=== PATIENT | male | born 1965 | race Caucasian/White ===

== ENCOUNTER → 2019-12-04 08:54 | Outpatient (CLI) | payer MEDICAID | END | disposition home or self-care (01) | LOC: D.HCCECHO 08:54 | PROVIDERS: ATTEND Internal Medicine Cardiovascular Disease | DX: R06.00 Dyspnea, unspecified (principal); I20.9 Angina pectoris, unspecified ==

== ENCOUNTER → 2020-01-18 10:51 | Outpatient (CLI) | payer MEDICAID ==
[~2020-01-18 10:51] MED LIST: ALBUTEROL SULF8.5 GM INH; LISINOPRIL-HCT1 EAC8 PO; ZOCOR20 MG PO
[2020-01-22 06:47] VITALS: BMI 31.4
== END | disposition home or self-care (01) ==
LOC: D.LAB 10:51
PROVIDERS: ATTEND Internal Medicine Pulmonary Disease
DX: Z13.9 Encounter for screening, unspecified (principal)

== ENCOUNTER → 2020-01-21 13:43 | Outpatient (CLI) | payer MEDICAID ==
[2020-01-22 06:47] VITALS: BMI 31.4
== END | disposition home or self-care (01) ==
LOC: D.RT 13:43
PROVIDERS: ATTEND Internal Medicine Pulmonary Disease
DX: R06.09 Other forms of dyspnea (principal)

== ENCOUNTER 2020-01-22 05:49 | Day surgery (SDC) | payer MEDICAID ==
[~2020-01-22] VITALS: Ht 177.8 cm; Wt 99.5 kg
--- NOTE | ~2020-01-22 | HEMODYNAMI ---
PATIENT:YUDITH LUNA MEDICAL RECORD: [id number] : 63 LOCATION:[facility] ADMISSION DATE: 01/22/20 Generatedon:01/22/20208:29 Patient name: YUDITH LUNA Patient #: [id number] SSN: : 1965 Date of study: 01/22/2020 Page: Of Hemodynamic Procedure Report Patient Data Patient Demographics Procedure consent was obtained First Name: YUDITH Gender: Male Last Name: JEREMY : 1965 Patient #: [id number] Age: 54 year(s) Race: Additional ID: [id number] Contact details [address]: [address] [place] [address] State: [place] City: [place] Zip code: [address] Past Medical History Allergies Allergen Reaction Date Comments Reported Other allergy 01/22/2020 N Admission Admission Data Admission Date: 01/22/2020 Admission Time: 5:49 Arrival Date: 01/22/2020 Arrival Time: 0:00 Admit Source: Other Height (in.): 70.08 BSA: 2.18 (m2) Height (cm.): 178 BMI: 31.56 (kg/m2) Weight (lbs.): 220.46 Weight (kg.): 100 Lab Results Lab Result Date: 01/22/2020 Lab Result Time: 7:00 Biochemistry Name Units Result Min Max BUN mg/dl 22 --(----)-* 7 18 Creatinine mg/dl 1.3 --(---*)-- 0.6 1.3 eGFR ml/min 61.12089 *-(----)-- 90 120 NONAFRICAN CBC Name Units Result Min Max Hematocrit % 44.8 --(*---)-- 42 54 Hemoglobin g/dl 15.4 --(-*--)-- 13.5 17.5 Procedure Procedure Types Cath Procedure Diagnostic Procedure LHC LHC w/Coronaries Sedation Charges Moderate Sedation up to 30 minutes Procedure Description Procedure Date Procedure Date: 01/22/2020 Procedure Start Time: 8:17 Procedure End Time: 8:27 Procedure Staff Name Function Padminidanii Elam RT Scrub Russ Blue RT Monitor Naz Mcclain RN Nurse Augustin Joaquin MD Performing Physician Indication Angina Procedure Data Cath Procedure Fluoroscopy Diagnostic fluoroscopy Total fluoroscopy Time: 2.4 time: 2.4 min min Diagnostic fluoroscopy Total fluoroscopy dose: 640 dose: 640 mGy mGy Contrast Material Contrast Material Type Amount (ml) Isovue 300 54 Entry Location Entry Primary Successful Side Size Upsize Upsize Entry Closure Braden ccessful Closure Location (Fr) 1 (Fr) 2 (Fr) Remarks Device Remarks Radial Right 6 Fr Mechanical artery Short Compression Estimated blood loss: 5 ml Diagnostic catheters Device Type Used For End Catheter Placement DIAGNOSTIC [place] 110cm 5 Procedure Fr catheter ([id number]) DIAGNOSTIC AR MOD 5Fr Procedure Catheter ([id number]) Procedure Complications No complications Procedure Medications Medication Administration Route Dosage Oxygen etCO2 Nasal cannula 2 l/min Lidocaine 2% added to field 20 Heparin Flush Bag added to field 2 bags (1000units/500ml NS) 0.9% NaCl I.V. 100 ml/hr Radial Cocktail I.A. 1 syringe (Verapamil 2mg/Nitro 400mcg/Heparin 1500units) Versed I.V. 2 mg Fentanyl I.V. 50 mcg Versed I.V. 1 mg Versed I.V. 1 mg Fentanyl I.V. 50 mcg Hemodynamics Rest BSA: 2.18 (m2) HGB: 15.4 (g/dl) O2 Consumption: Estimated: 259.68 (ml/min) O2 Co nsumption indexed: Estimated:119.12 (ml/min/m) Heart Rate: 72 (bpm) Pressure Samples Time Site Value (mmHg) Purpose Heart Use Rate(bpm) 8:20 LV 102/0,11 Snapshot 92 8:20 AO 86/58(69) Pullback 93 8:20 LV 102/-3,7 Pullback 93 Gradients Valve Time Site 1 Site 2 Mean SEP/DFP Peak To Heart Use (mmHg) (sec/min) Peak Rate (mmHg) (bpm) Aortic 8:20 LV AO 2 4 16 93 102/-3,7 86/58(69) Calculations Valve P-P Mean Valve Index Valve Source Name Gradient Area Flow (cm2) Aortic 16 2 16 2 Snapshots Pre Cath Intra NCS Post Cath Vital Signs Time Heart Resp SPO2 etCO2 NIBP Rhythm Pain Sedation Rate (ipm) (%) (mmHg) (mmHg) Status Level (bpm) 8:00:48 72 18 98 21 103/71(77) NSR 0 (11) 10(A) , No pain 8:05:00 88 25 95 21 98/70(84) NSR 0 (11) 10(A) , No pain 8:09:10 77 12 95 25.5 103/69(85) NSR 0 (11) 10(A) , No pain 8:13:22 75 16 96 25.5 105/71(85) NSR 0 (11) 9(A) , No pain 8:17:31 77 11 95 27.8 106/79(84) NSR 0 (11) 9(A) , No pain 8:21:48 83 14 95 13.5 95/57(88) NSR 0 (11) 10(A) , No pain 8:25:59 78 13 95 21.8 88/57(73) NSR 0 (11) 10(A) , No pain Medications Time Medication Route Dose Verified Delivered Reason Notes Effectiveness by by 8:02:31 Oxygen etCO2 2 l/min Augustin Buffie used for Nasal Jemal Mcclain RN procedure cannula 8:02:38 Lidocaine 2% added 20ml Augustin Augustin for local to vial Jemal Joaquin MD anesthetic field 8:02:44 Heparin Flush added 2 bags Augustin Augustin used for Bag to Jemal Joaquin MD procedure (1000units/500ml field NS) 8:02:53 0.9% NaCl I.V. 100 Augustin Buffie Per ml/hr Jemal Mcclain RN physician 8:05:45 Versed I.V. 2 mg Augustin Buffie for sedation Jemal Mcclain RN 8:05:50 Fentanyl I.V. 50 mcg Augustin Buffie for sedation Jemal Mcclain RN 8:11:28 Fentanyl I.V. 50 mcg Augustin Buffie for sedation Jemal Mcclain RN 8:11:31 Versed I.V. 1 mg Augustin Buffie for sedation Jemal Mcclain RN 8:15:30 Versed I.V. 1 mg Augustin Buffie for sedation Jemal Mcclain RN 8:18:00 Radial Cocktail I.A. 1 Augustin Augustin for (Verapamil syringe Jemal Joaquin MD vasodilation 2mg/Nitro 400mcg/Heparin 1500units) Procedure Log Time Note 7:33:35 Informed consent obtained and on chart 7:34:14 Indication : Angina 7:34:36 Arrival Date: 01/22/2020 12:00:00 AM 7:36:11 Patient Height : 70.08 inches 7:36:18 Patient Weight : 220.46 lbs 7:37:20 H&P Date Dictated: 01/22/2020 H&P Addendum completed by physician on day of procedure. (MUST COMPLETE FOR ALL OUTPATIENTS), New H&P dictated by physician.. 7:37:42 Patient allergic to Other allergyPCN 7:38:12 Stress Test: yes; abnormal INFERIOR 7:38:26 Procedure Status Elective Heart Cath (OP). 7:38:31 Time tracking: Regular hours (M-F 7:00 - 5:00) 7:42:42 Plan of Care:Hemodynamics will remain stable., Cardiac rhythm will remain stable., Comfort level will be maintained., Respiratory function will remain adequate., Patient/ family verbilizes understanding of procedure., Procedure tolerated without complication., Recovers from procedure without complications.. 7:46:22 Padmini CHANG(R) (CV) sent for patient. Start room use. 7:52:52 Patient received from Pre/Post Procedure Room to CCL 1 Alert and oriented. Tansferred to table in Supine position. 7:52:54 Warm blankets applied, and jeremías hugger turned on for patient comfort. 7:52:54 Correct patient and procedure confirmed by team. 7:52:55 ECG and BP/O2 sat monitors applied to patient. 7:52:56 Pre-procedure instructions explained to patient. 7:52:56 Pre-op teaching completed and patient verbalized understanding. 7:52:58 Family in waiting room. 7:52:59 Patient NPO since Midnight. 7:55:10 Admit Source: Other 7:55:12 ACC Patient presents with Stable Angina CCS Anginal Class 2--Slight limitation of ordinary activity. 7:55:15 ACCPatient has been prescribed/administered the following anti-anginal medication within the last 2 weeks: PORFIRIO-Inhibitor 7:55:29 Is the patient allergic to Iodine/contrast media? No. 7:55:31 Is patient on blood thinner?No 7:55:32 Patient diabetic? No. 7:55:34 Previous problem with sedation/anesthesia? No ? 7:55:36 Snore? Yes 7:55:36 Sleep apnea? No 7:55:37 Deviated septum? No 7:55:40 Opens mouth fully? Yes 7:55:41 Sticks out tongue? No 7:55:43 Airway obstruction? No ? 7:55:45 Dentures? No ? 7:55:51 Pre procedure: right dorsailis pedis pulse 2+ Normal; easily identifiable; not easily obliterated 7:55:54 Modified Sudheer's test Ulnar < 7 seconds 7:56:01 Patient pain scale 0/10 ?. 7:56:15 IV patent on arrival in left wrist with 0.9% NaCl at [facility]. 7:59:00 Lab Result : BUN 22 mg/dl 7:59:00 Lab Result : Creatinine 1.3 mg/dl 7:59:00 Lab Result : eGFR NONAFRICAN 61.97035 ml/min 7:59:00 Lab Result : Hemoglobin 15.4 g/dl 7:59:00 Lab Result : Hematocrit 44.8 % 7:59:03 Lab results completed and on chart. 7:59:04 Lab results completed and on chart. 7:59:12 Right Radial & Right Groin area was prepped with chlora-prep and draped in sterile fashion 7:59:13 Alarms reviewed by R. N. 7:59:14 Sharps counted by scrub and verified by R.N. 7:59:16 Use device set Radial Dx or PCI 7:59:16 ACIST Syringe (93431) opened to sterile field. 7:59:17 Medline Cath Pack ([id number]) opened to sterile field. 7:59:17 Bag Decanter () opened to sterile field. 7:59:18 ACIST Hand Control (34032) opened to sterile field. 7:59:18 ACIST Manifold (02004) opened to sterile field. 7:59:18 Tegaderm 4 x 4 (1626W) opened to sterile field. 7:59:19 MBrace Wrist Support ([id number]) opened to sterile field. 7:59:20 SHEATH 6FR RAIN (0411430) opened to sterile field. 7:59:21 EMERALD Guide Wire (420-903) opened to sterile field. 7:59:34 NEEDLE Cook 21G 4cm Radial ([id number]) opened to sterile field. 7:59:39 Vital chart was started 7:59:40 Baseline sample Acquired. 7:59:47 Rhythm: unchanged. 7:59:48 Full Disclosure recording started 7:59:59 Physician arrived 7:59:59 --------ALL STOP TIME OUT------ 7:59:59 Final Timeout: patient, procedure, and site verified with staff and physician. All members of the team are in agreement. 8:00:01 Right Radial & Right Groin site verified by team. 8:00:04 Fire Safety Assessment: A--An alcohol-based skin anteseptic being used preoperatively., C--Open oxygen or nitrous oxide is being used., D--An ESU, laser, or fiber-optic light is being used. 8:00:11 Physical assessment completed. ASA score P 2 - A patient with mild systemic disease as per Augustin Joaquin MD. 8:00:16 2) 60-89 Mildly reduced kidney function, and other findings (as for stage 1) point to kidney disease. 8:00:21 Maximum allowable contrast dose (3.7 X eGFR X 0.75)169 ml. 8:00:25 Sedation plan: IV Moderate Sedation Medication:Versed, Fentanyl 8:02:31 Oxygen 2 l/min etCO2 Nasal cannula was administered by Naz Mcclain RN; used for procedure; Verbal order read back and verified. 8:02:38 Lidocaine 2% 20ml vial added to field was administered by Augustin Joaquin MD; for local anesthetic; Verbal order read back and verified. 8:02:44 Heparin Flush Bag (1000units/500ml NS) 2 bags added to field was administered by Augustin Joaquin MD; used for procedure; Verbal order read back and verified. 8:02:53 0.9% NaCl 100 ml/hr I.V. was administered by Naz Mcclain RN; Per physician; Verbal order read back and verified. 8:05:45 Versed 2 mg I.V. was administered by Naz Mcclain RN; for sedation; Verbal order read back and verified. 8:05:50 Fentanyl 50 mcg I.V. was administered by Naz Mcclain RN; for sedation; Verbal order read back and verified. 8:10:53 Zero performed for pressure channel P1 8::28 Fentanyl 50 mcg I.V. was administered by Naz Mcclain RN; for sedation; Verbal order read back and verified. 8::31 Versed 1 mg I.V. was administered by Naz Mcclain RN; for sedation; Verbal order read back and verified. 8:15:30 Versed 1 mg I.V. was administered by Naz Mcclain RN; for sedation; Verbal order read back and verified. 8:17:31 Procedure started. 8:17:36 Local anesthetic to right radial artery with Lidocaine 2% by Augustin Joaquin MD.INITIAL ACCESS ONLY 8:17:42 A 6 Fr Short sheath was inserted into the Right Radial artery 8:18:00 Radial Cocktail (Verapamil 2mg/Nitro 400mcg/Heparin 1500units) 1 syringe I.A. was administered by Augustin Joaquin MD; for vasodilation; Verbal order read back and verified. 8:18:34 A DIAGNOSTIC [place] 110cm 5 Fr catheter ([id number]) was advanced over the wire and used for Procedure. 8:20:10 LV gram done using SANCHEZ 8:20:13 Injector settings: Ml/sec: 5, Volume: 15, 8:20:14 LV hemodynamics recorded. 8:20:21 EF : 60 % 8:21:08 LCA angiography performed. 8:23:20 Catheter exchanged over wire. 8:23:31 A DIAGNOSTIC AR MOD 5Fr Catheter ([id number]) was advanced over the wire and used for Procedure. 8:24:33 RCA angiography performed. 8:25:10 Catheter removed. 8:25:19 ZEPHYR REGULAR TR BAND (484578) opened to sterile field. 8:25:34 Sheath removed intact; hemostasis achieved with Mechanical Compression to the Right Radial artery. 8:25:36 Procedure ended.(Physican Out) 8:25:59 Fluoroscopy time 02.40 minutes. 8:26:02 Fluoroscopy dose: 640 mGy 8:26:02 Flurop Dose total: 640 8:26:09 Dose Area Product 64247 mGy/cm. 8:26:13 Contrast amount:Isovue 300 54ml. 8:26:14 Maximum allowable dose exceeded? No. 8:26:15 Sharps counted by scrub and verified by R.N. 8:26:17 [place] band inflated with 12cc of air. 8:26:18 Insertion/operative site no bleeding no hematoma. 8:26:19 Post Procedure Pulses reassessed and unchanged 8:26:23 Post-procedure physical assessment completed. ASA score P 2 - A patient with mild systemic disease as per Augustin Joaquin MD. 8:26:25 Post procedure rhythm: unchanged. 8:26:39 Estimated blood loss: 5 ml 8:26:41 Post procedure instruction explained to patient.Patient verbalizes understanding. 8:26:41 Patient needs reinforcement of post procedure teaching. 8:26:53 Procedure type changed to Cath procedure, Diagnostic procedure, LHC, LHC w/Coronaries, Sedation Charges, Moderate Sedation up to 30 minutes 8:27:12 Procedure and supply charges have been captured, reviewed, submitted and are correct. 8:27:13 Procedure Complication : No complications 8:27:15 Vital chart was stopped 8:27:17 Operative report dictated upon procedure completion. 8:27:18 See physician's report for complete and final results. 8:27:20 Report given to Pre/Post Procedure Room. 8:27:22 Patient transfered to Pre/Post Procedure Room with Stretcher. 8:27:24 Procedure ended. 8:27:24 Full Disclosure recording stopped 8:27:29 End room use (Document Last) 8:28:04 End room use (Document Last) 8:28:16 End room use (Document Last) 8:28:16 Padmini Elam RT(R) (CV) was relieved by Russ Blue RT(R) as monitoring person 8:28:35 End room use (Document Last) 8:28:39 Russ Blue RT(R) was relieved by Russ Blue RT(R) as monitoring person 8:28:39 End room use (Document Last) Device Usage Item Name Manufacture Quantity Catalog Hospital Part Current Minima l Lot# / Number Charge Number Stock Stock Serial# Code ACIST Acist 1 95992 [id number] 385453 [id number] 20 Syringe Medical (68989) Systems Inc Medline Medline 1 [id number] 131799 95465 794478 5 Cath Pack ([id number]) Bag Microtek 1 637168 32039 149048 5 Decanter Medical Inc. () ACIST Hand Acist 1 58292 484859 698732 843736 5 Control Medical (31659) Systems Inc ACIST Acist 1 72665 001969 163169 250189 5 Manifold Medical (59286) Systems Inc Tegaderm 4 3M 1 1626W 843352 449351 268718 5 x 4 (1626W) MBrace Advanced 1 140-0250-00 682013 46178 541698 5 Wrist Vascular Support Dynamics ([id number]) SHEATH 6FR Cardinal 1 3886666 489422 5508211 903347 5 RAIN Health (7669552) EMERALD Cardinal 1 991-108 634458 282297 917257 5 Guide Wire Health (529-654) NEEDLE Cook Cook Medical 1 I86345 441131 304475 094413 5 21G 4cm Radial (G54254) DIAGNOSTIC Terumo 1 40-8905 686768 721660 308629 5 [place] 110cm 5 Fr catheter (428412) DIAGNOSTIC Cardinal 1 [id number] 056294 493612 227423 15 AR MOD 5Fr Health Catheter (938350B) ZEPHYR Cardinal 1 441477 519430 6726155 486131 5 REGULAR TR Health BAND (595583) Signature Audit [place] Stage Time Signature Unsigned Intra-Procedure 01/22/2020 Russ Blue 8:28:04 AM RT(R) Intra-Procedure 01/22/2020 Naz Mcclain RN 8:28:35 AM Intra-Procedure 01/22/2020 Augustin Joaquin MD 8:28:[address] [place] [address]
[2020-01-22] MEDS ORDERED: LISINOPRIL-HCT1 EAC8 PO (06:35)
[2020-01-22] MEDS ORDERED: ZOCOR20 MG PO (06:35)
[2020-01-22] MEDS ORDERED: ALBUTEROL SULF8.5 GM INH (06:36)
[2020-01-22 06:47] VITALS: BP 113/77; Ht 177.8 cm; Wt 99.5 kg
[2020-01-22 07:30] LABS: ANION GAP 11.4 mmol/L (8-16); CALCIUM 8.7 mg/dL (8.5-10.1); CARBON DIOXIDE 25.5 mmol/L (21.0-32.0); CHOL - HDL RATIO 3.9 ratio (2.3-4.9); CREATININE - SERUM 1.3 mg/dL (0.6-1.3); LDL-HDL RATIO 2.6 ratio (1.5-3.5); POTASSIUM - SERUM 3.9 mmol/L (3.5-5.1)
[2020-01-22 07:50] LABS: BASOPHILS 0.1 % (0-2); EOSINOPHILS 1.6 % (0-7); HEMATOCRIT 44.8 % (42.0-54.0); HEMOGLOBIN 15.4 g/dL (13.5-17.5); IMMATURE GRANULOCYTES 0.1 % (0-5); LYMPHOCYTES 18.4 % (15-50); MCH 30.9 pg (26.0-34.0); MCHC 34.4 g/dL (31.0-37.0); MCV 89.8 fL (80.0-100.0); MEAN PLATELET VOLUME 9.7 fL (7.4-10.4); MONOCYTES 9.6 % (2-11); NEUTROPHILS 70.2 % (40-80); PLATELET COUNT 193 10x3/uL (130-400); RBC 4.99 10x6/uL (4.20-6.10); RDW 12.2 % (11.5-14.5); WBC 7.9 10x3/uL (4.8-10.8)
--- NOTE | 2020-01-22 08:35 | NUR ---
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 PT DROWSY BUT VERBALLY AROUSABEL, DENIES PAIN OR DISCOMFORT. IV PATENT INFUSING VIA ORDERS TO L ARM. PT PLACED ON CARDIAC MONITORS AND O2 VIA NC AT 2L. HR NSR 67, BP 88/56, RR 11, SAT 96. ZYPHER BAND AND IMMOBILIZER TO R WRIST/ARM, NO BLEEDING OR S/S HEMATOMA NOTED. ARM PINK AND WARM, CAP REFILL BRISK. PT INSTRUCTED NOT TO USE ARM, HE VERBALIZED UNDERSTANDING. CALL LIGHT IN REACH.
--- NOTE | 2020-01-22 09:00 | NUR ---
PT RESTING COMFORTABLY, DENIES PAIN OR DISCOMFORT. ZBAND AND IMMOBILIZER IN PLACE, NO S/S HEMATOMA OR BLEEDING. ARM PINK AND WARM, CAP REFILL BRISK. CALL LIGHT IN REACH, PO FLUIDS GIVEN PER PT REQUST.
--- NOTE | 2020-01-22 09:45 | NUR ---
PT RESTING COMFORTABLY, DENIES PAIN OR NEEDS AT THIS TIME. ZBAND AND IMMOBILIZER IN PLACE, NO S/S HEMATOMA OR BLEEDING NOTED. CALL LIGHT IN REACH, VSS.
--- NOTE | 2020-01-22 10:05 | NUR ---
3 CC AIR REMOVED FROM Z BAND, NO BLEEDING OR S/S HEMATOMA NOTED. ARM PINK AND WARM, CAP REFILL BRISK. DR PELAEZ IN ROOM SPOKE WITH PT REGARDING PLAN OF CARE AND PROCEDURE RESULTS, NO NEW ORDERS RECEIVED. VSS, PT DENIES NEEDS AT THIS TIME.
--- NOTE | 2020-01-22 10:34 | NUR ---
2 ADD'L CC AIR REMOVED FROM Z BAND, NO BLEEDING OR S/S HEMATOMA NOTED. O2 REMOVED, SAT 96 ON ROOM AIR. PT DENIES PAIN OR NEEDS AT THIS TIME. CALL LIGHT IN REACH.
--- NOTE | 2020-01-22 10:47 | NUR ---
DISCHARGE INSTRUCTIONS REVIEWED W PT, HE VERBALIZED UNDERSTANDING. IV REMOVED W CATH INTACT, MONITORS REMOVED. ZBAND AND IMMOBILIZER IN PLACE, PT UP TO DRESS FOR DISCHARGE
--- NOTE | 2020-01-22 10:55 | NUR ---
ZBAND REMOVED, 2X2 AND SM TEGADERM DRESSING APPLIED. IMMOBILIZER REPOSITIONED. PT TO BR VIA WC, VOIDING W/O DIFFICULITY. 1100 PT DISCHARGED VIA WC TO RIDE WAITING IN PRIVATE VEHICLE. PT HAD ALL BELONGINGS AND DISCHARGE PAPERWORK.
== END 2020-01-22 11:00 | disposition home or self-care (01) ==
LOC: D.CATH 05:49
PROVIDERS: ATTEND Internal Medicine Cardiovascular Disease
DX: I20.9 Angina pectoris, unspecified (principal); R94.39 Abnormal result of other cardiovascular function study; I10 Essential (primary) hypertension

== ENCOUNTER → 2020-07-09 18:49 | Outpatient (CLI) | payer MEDICAID ==
[2020-01-22 06:47] VITALS: BMI 31.4
[2020-07-10 00:04] LABS: CHOL - HDL RATIO 4.1 ratio (2.3-4.9); LDL-HDL RATIO 2.7 ratio (1.5-3.5)
== END | disposition home or self-care (01) ==
LOC: D.LAB 18:49
PROVIDERS: ATTEND Nurse Practitioner
DX: E78.5 Hyperlipidemia, unspecified (principal)

== ENCOUNTER → 2020-10-29 21:31 | Outpatient (CLI) | payer BC ==
[2020-01-22 06:47] VITALS: BMI 31.4
[2020-10-30 00:02] LABS: CHOL - HDL RATIO 2.1 ratio (2.3-4.9); LDL-HDL RATIO 0.9 ratio (1.5-3.5)
== END | disposition home or self-care (01) ==
LOC: D.LABREF 21:31
PROVIDERS: ATTEND Internal Medicine Cardiovascular Disease
DX: E78.5 Hyperlipidemia, unspecified (principal)